=== PATIENT | male | born 1990 | race Hispanic/Latino ===

== ENCOUNTER 2017-07-13 23:54 | Emergency (ER) | payer SELFPAY ==
[2017-07-13 23:59] VITALS: BP 138/99; PULSE 123; RESP 16; TEMP 99.1; O2SAT 98
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
[2017-07-14 00:36] LABS: HEMATOCRIT 46.7 % (35.0-51.0); MEAN CELL VOLUME 88.1 fl (80.0-94.0); MEAN CORPUSCULAR HEMOGLOBIN 29.2 pg (27.0-31.0); MEAN CORPUSCULAR HGB CONC 33.1 g/dL (33.0-37.0); RED CELL DISTRIBUTION WIDTH 13.4 % (11.5-14.5); WHITE BLOOD COUNT 12.6 K/uL (4.8-10.8)
[2017-07-14 00:44] LABS: ALB/GLOB RATIO 1.4 (1.0-2.1); ALCOHOL SERUM 75 mg/dl (0-10); ALKALINE PHOSPHATASE 109 U/L (38-126); ALT/SGPT 65 U/L (21-72); AST/SGOT 131 U/L (17-59); BILIRUBIN,TOTAL 1.1 mg/dl (0.2-1.3); BLOOD UREA NITROGEN 13 mg/dl (9-20); CALCIUM 9.4 mg/dL (8.4-10.2); CARBON DIOXIDE 19 mmol/L (22-30); CHLORIDE 102 mmol/L (98-107); GFR AFRICAN-AMERICAN > 60; GLUCOSE,RANDOM 128 mg/dL (75-110); POTASSIUM 3.5 MMOL/L (3.6-5.0); SODIUM 140 mmol/l (132-148); TOTAL PROTEIN 8.5 G/DL (6.3-8.2)
[2017-07-14 01:39] LABS: RBC URINE 9 /hpf (0-3); URINE BACTERIA RARE (<OCC); URINE BILIRUBIN NEGATIVE (NEGATIVE); URINE BLOOD NEGATIVE (NEGATIVE); URINE COLOR AMBER (YELLOW); URINE GLUCOSE (UA) NEG (Normal); URINE KETONE NEGATIVE (NEGATIVE); URINE LEUKOCYTE ESTERASE NEG Leu/uL (Negative); URINE PROTEIN 30 mg/dL (NEGATIVE); URINE UROBILINOGEN 0.2-1.0 mg/dL (0.2-1.0); WBC URINE 3 /hpf (0-5)
== END 2017-07-14 02:09 | disposition home or self-care (01) ==
LOC: H.ER 23:54
DX: F10.14 Alcohol abuse with alcohol-induced mood disorder (principal); F10.10 Alcohol abuse, uncomplicated; Z00.8 Encounter for other general examination; F17.200 Nicotine dependence, unspecified, uncomplicated
CPT/HCPCS: 80053; 81003; 82948; 85027; 99282; G0480